=== PATIENT | female | born 1945 | race Caucasian/White ===

== ENCOUNTER → 2017-02-12 | Outpatient (CLI) | payer MEDICARE, OTHER | END | disposition home or self-care (01) | LOC: EDT 02-08 14:00 | DX: E11.65 Type 2 diabetes mellitus with hyperglycemia (principal); Z71.3 Dietary counseling and surveillance ==

== ENCOUNTER → 2017-03-21 | Outpatient (CLI) | payer MEDICARE, OTHER | END | disposition home or self-care (01) | LOC: RAD.S 14:59 | DX: C82.11 Follicular lymphoma grade II, lymph nodes of head, face, and neck (principal); I10 Essential (primary) hypertension; R51 Headache; Z98.890 Other specified postprocedural states; J34.1 Cyst and mucocele of nose and nasal sinus ==